=== PATIENT | female | born 1995 ===

== ENCOUNTER 2022-08-23 09:16 | Emergency (ER) | payer OTHER, SELFPAY ==
--- NOTE | ~2022-08-23 | CT_ITS ---
EXAMINATION: CT ABDOMEN AND PELVIS WITH CONTRAST CLINICAL INFORMATION: Abdominal pain. Flank pain. COMPARISON: None TECHNIQUE: Multidetector volumetric images were obtained from the superior aspect of the liver through the pubic symphysis following administration 85 mL of Omnipaque 350 intravenous contrast. Sagittal and coronal reformatted images were obtained on the technologist's workstation. Oral contrast: No This CT examination was performed using dose optimization techniques as appropriate, variously including the following: *Automated exposure control *Adjustment of mA and/or kV according to patient size (this includes techniques or standardized protocols for targeted exams where dose is matched to indication/reason for exam; i.e. extremities or head) *Use of iterative reconstruction technique DLP: 909 mGy-cm FINDINGS: LUNG BASES: The visualized lung bases are unremarkable. LIVER, GALLBLADDER, AND BILIARY TREE: The liver is normal in size, shape, and attenuation. No focal hepatic lesion or biliary ductal dilatation is present. The gallbladder is unremarkable with no evidence of radiopaque gallstones, gallbladder wall thickening, or obvious pericholecystic inflammatory changes. PANCREAS: Unremarkable. SPLEEN: Unremarkable. ADRENAL GLANDS: Normal appearance of the left adrenal gland. There is a 0.9 cm right adrenal gland nodule which is indeterminate by Hounsfield unit measurement. KIDNEYS AND URETERS: The kidneys are normal in size, shape, and attenuation. No hydronephrosis, hydroureter, or calculi seen. No perinephric stranding. BLADDER: Unremarkable. GASTROINTESTINAL TRACT: The small and large bowel are unremarkable. The appendix is unremarkable. ABDOMINAL WALL: No significant hernia is appreciated. LYMPH NODES: Normal. VASCULAR: Unremarkable. PELVIC VISCERA: The uterus and adnexa are unremarkable. OSSEOUS STRUCTURES: No acute or suspicious osseous abnormality. Mild degenerative change at L5-S1 with small endplate osteophytes present. CT/CT abdomen pelvis w IV con IMPRESSION: 1. No acute findings in the abdomen or pelvis. No hydronephrosis or nephrolithiasis. 2. Indeterminate 0.9 cm right adrenal gland nodule. This can be further evaluated with nonemergent adrenal protocol CT. Fleischner guidelines were followed.
[2022-08-23 09:24] VITALS: BP 129/79; PULSE 78; RESP 16; TEMP 36.1; O2SAT 100; BMI 35.7
--- NOTE | 2022-08-23 09:35 | MHC.EDTECH ---
Labs and urine collected and sent
[2022-08-23 09:42] LABS: MANUAL DIFF FLAG NO
[2022-08-23 09:45] LABS: Appearance Urine Clear; Basophils Percent Auto 0.2 % (0-2); Color Urine Yellow; Eosinophils Absolute Auto 0.1 X10*3/uL (0.0-0.4); Eosinophils Percent Auto 0.7 % (0-4); Glucose Urine UA Negative (Negative); Hematocrit 42.5 % (37.0-47.0); Hemoglobin 13.6 g/dl (12.0-16.0); Imm Gran Abs Auto 0.02 X10*3/uL (0.00-0.03); Imm Gran Pct Auto 0.2 % (0.0-0.4); Leukocyte Esterase Urine Negative (Negative); Lymphocytes Absolute Auto 2.2 X10*3/uL (1.2-4.9); Lymphocytes Percent Auto 25.9 % (20-40); Mean Corpuscular Hemoglobin 27.9 pg (27.0-33.0); Mean Corpuscular Volume 87.1 fL (80.0-98.0); Mean Platelet Volume 11.3 fL (9.4-12.3); Monocytes Absolute Auto 0.5 X10*3/uL (0.1-1.2); Monocytes Percent Auto 6.1 % (2-11); Neutrophils Absolute Auto 5.6 x10*3/uL (2.0-8.3); Neutrophils Percent Auto 66.9 % (45-73); Nitrite Urine Negative (Negative); PH 5.5 (5.0-9.0); Platelet Count 292 X10*3/uL (160-400); Red Blood Count 4.88 X10*6/uL (4.20-5.50); Red Cell Distribution Width 14.5 % (11.0-16.0); Urine Blood Negative (Negative); Urine Ketones Negative (Negative); Urine Protein Negative (Neg-Trace); White Blood Count 8.4 X10*3/uL (4.8-10.8)
[2022-08-23 10:20] LABS: Anion Gap 18 (12-20); Blood Urea Nitrogen 14 mg/dL (9-16); Calcium 9.3 mg/dL (8.4-10.2); Carbon Dioxide 22 mmol/L (22-29); Chloride 105 mmol/L (96-108); Creatinine Clr Calc Pharmacy 114.8; Estimated Glomerular Filt Rate > 60; Glucose Random 109 mg/dL (60-115); Potassium 4.7 mmol/L (3.3-5.1); Sodium 140 mmol/L (135-145)
--- NOTE | 2022-08-23 11:09 | ED_ITS ---
HPI - General Adult General Chief complaint: Abdominal Pain Stated complaint: pain from back to abd Time Seen by Provider: 08/23/22 11:08 Source: patient Mode of arrival: ambulatory Limitations: no limitations History of Present Illness HPI narrative: Tiki is a 27 year old female who presents to the ED with two weeks of progressively worsening right sided flank pain and RUQ pain. She reports pain initially started solely as flank pain while sitting at work but has since progressed to radiation in RUQ. She denies any trauma to the area. She associates a constant dull aching with intermittent stabbing/shooting pain in RUQ. She endorses nausea but denies vomiting, fatigue, fever, or skin color changes. Her pain is reproducible with palpation and worse with inspiration. She reports exacerbation with etoh use, and minimal relief with acetaminophen and ibuprofen. Onset (ago): week(s) (2) Location: chest, back and abdomen Radiation: back and abdomen Severity: mild Severity scale (1-10): 3 Quality: stabbing and dull Pain Consistency: constant (dull aching) and intermittent (sharp intermittent) Relieving factors: none Exacerbating factors: movement and other (palpation, inspiration) Associated symptoms: nausea/vomiting (nausea) Treatments prior to arrival: NSAID (ibuprofen) and other (tylenol) Related Data Previous Rx's Medication Instructions Recorded naproxen 500 mg tablet 500 mg PO BID 7 days #14 tabs 08/23/22 Allergies Allergy/AdvReac Type Severity Reaction Status Date / Time No Known Allergies Allergy Verified 08/23/22 09:24 Review of Systems Constitutional: Constitutional: Reports no additional constitutional complaints, Denies chills, Denies fever(s) and Denies night sweats Eyes: Eyes: Reports no additional eye complaints, Denies blurry vision, Denies change in vision, Denies diplopia, Denies eye discharge, Denies loss of vision and Denies eye pain ENT: Denies dizziness Cardiovascular: Cardiovascular: Reports no additional cardiovascular complaints, Reports chest pain (right sided chest wall), Denies lightheadedness, Denies Loss of Consciousness and Denies dyspnea Respiratory: Respiratory: Reports no additional respiratory complaints and Denies dyspnea Gastrointestinal: Gastrointestinal: Reports no additional gastrointestinal complaints, Reports abdominal pain, Denies melena, Denies hematochezia, Denies change in bowel habits, Denies change in stool character, Denies constipation, Denies diarrhea and Reports nausea Genitourinary: Genitourinary: Denies hematuria, Denies urinary frequency, Denies dysuria, Reports flank pain (right), Denies urinary incontinence, Denies urinary hesitancy and Denies urinary urgency Musculoskeletal: Musculoskeletal: Reports no additional musculoskeletal complaints, Reports back pain (right flank), Denies numbness and Denies tingling Integumentary/Breasts: Skin/Breast: Denies change in pigmentation Neurologic: Denies dizziness, Denies loss of vision, Denies numbness and Denies tingling Psychiatric: Psychiatric: Reports no additional psychiatric complaints Endocrine: Endocrine: Reports no additional endocrine complaints Hematologic/Lymphatic: Hematologic/Lymphatic: Reports no additional hematologic/lymphatic complaints Allergic/Immunologic: Allergic/Immunologic: Reports no additional allergic/immunologic complaints PMFSH Past Medical History Attestation statement: The following information was validated with the patient. Source: old records reviewed and nursing notes reviewed Social History Social History Advance Directives: No Physical Exam ED Vital Signs: Vital Signs - 24 hr 08/23/22 09:24 08/23/22 11:35 08/23/22 14:26 Temperature 97 F 98.2 F 98.3 F Pulse Rate 78 87 55 Respiratory Rate 16 16 16 Blood Pressure 129/79 145/87 H 126/68 Pulse Oximetry 100 98 100 Oxygen Delivery Method Room Air Room Air Room Air BMI result Body Mass Index 35.7 Const General: cooperative, no acute distress, alert and awake Nutritional Appearance: well nourished Orientation/consciousness: patient oriented x3 Limitations: no limitations [facility] Head: Yes normal to inspection and Yes atraumatic Ears: hearing grossly normal bilaterally and external ears normal General nose exam: Normal external nose present, no nasal discharge noted and no epistaxis Face and sinus: Yes normal facial exam, No abrasion and No laceration Mouth: Normal oral and palatal mucosa present, no drooling and no muffled voice Eyes General: appearance normal, both eyes and all related structures Periorbital: periorbital findings normal Eyelids: Yes eyelids normal Conjunctivae: conjunctivae normal Pupils: Equal, round and reactive pupils present EOM: EOMs intact bilaterally Neck Neck: Yes normal visual inspection, Yes full ROM and Yes no lymphadenopathy Chest Other: pain with palpation of the right chest wall Chest palpation & inspection: normal inspection of the chest Resp Effort & Inspection: normal respiratory effort and able to speak in complete sentences Auscultation: clear to auscultation bilaterally Cardio Rate: regular rate Rhythm: regular rhythm GI Inspection: Yes normal to inspection Palpation (GI): Soft to palpation, not firm, Tenderness to palpation present (GI) in the RUQ; Oconnell's sign negative, no guarding and not rigid Auscultation: normal bowel sounds General: Yes CVA tenderness (right side with radiation to RUQ) Back/Spine/Pelvis Back: CVA tenderness (right side with radiation to RUQ) and other Skin General skin exam: no rashes or lesions noted Neuro General: patient oriented x3 and moves all extremities Cranial nerves: Yes Equal, round and reactive pupils present Cognition (Neuro): normal cognition Motor exam (neuro): 5/5 motor strength present throughout Sensory Exam: Normal double simultaneous stimulation for sensation Coordination: [id number] test normal Extrem General: Yes normal to inspection, Yes full ROM and Yes capillary refill normal Psych Appearance: grossly normal Mental Status: mental status grossly normal Affect: normal affect Attitude: cooperative Thought process: Normal thought process present Thought content: Normal thought content present Insight: Good insight present (Psych) Medications Administered Discontinued Medications Generic Name Dose Route Start Last Admin Trade Name Mari PRN Reason Stop Dose Admin Iohexol 100 ml 08/23/22 13:59 08/23/22 13:59 Iohexol 350 Mg/Ml 100 Ml Infus..Btl IV 08/23/22 14:00 85 ml ONCE ONE Administration Ketorolac Tromethamine 15 mg 08/23/22 14:43 08/23/22 15:01 Ketorolac Tromethamine 15 Mg/Ml Vial IVPUSH 08/23/22 14:44 15 mg ONCE ONE Administration Morphine Sulfate 4 mg 08/23/22 11:22 08/23/22 11:28 Morphine Sulfate 4 Mg/Ml Cartridge IVPUSH 08/23/22 11:23 4 mg ONCE ONE Administration Protocol Ondansetron HCl 4 mg 08/23/22 11:22 08/23/22 11:28 Ondansetron Hcl 4 Mg/2 Ml Vial IVPUSH 08/23/22 11:23 4 mg ONCE ONE Administration Pantoprazole Sodium 40 mg 08/23/22 11:22 08/23/22 11:28 Pantoprazole Sodium 40 Mg/10 Ml Vial IVPUSH 08/23/22 11:23 40 mg ONCE ONE Administration Medical Decision Making Medical Decision Making [facility] Narrative: Patient is a 27 year old assigned female at with no reported medical history presenting to the emergency department today with right upper quadrant abdominal pain, right sided flank pain, and right sided chest wall pain. Patient's physical exam showed pain with palpation of the right upper abdominal quadrant, right chest wall, and right CVA. Patient's blood work was unremarkable. Patient's urine showed no acute process. Patient's abdomen/pelvis CT showed no acute process. I explained my physical exam findings as well as all test results to the patient. I answered all questions asked by the patient. Patient received IV pain medications and anti-emetics which she stated helped her symptoms significantly. I stressed the importance of the patient taking her medication as prescribed. I stressed the importance of the patient following up with her primary care provider. I stressed the importance of the patient returning to the emergency department immediately if her symptoms were to worsen or if she were to develop any dizziness, shortness of breath, difficulty breathing, chest pain, blurry vision, loss of vision, nausea, vomiting, a bdominal pain, fever, chills, back pain, or any other complaints. Patient verbalized agreement and understanding with this treatment plan and discharge. Differential Diagnosis Differential Diagnoses: The differential diagnosis associated with the presentation includes chest wall pain, abdominal pain Lab Data [facility] Lab Attestation statement: I reviewed the patient's lab results. 08/23/22 09:31 08/23/22 09:31 Labs: Lab Results 08/23/22 08/23/22 08/23/22 Range/Units 09:31 09:31 09:31 WBC 8.4 (4.8-10.8) X10*3/uL RBC 4.88 (4.20-5.50) X10*6/uL Hgb 13.6 (12.0-16.0) g/dl Hct 42.5 (37.0-47.0) % MCV 87.1 (80.0-98.0) fL MCH 27.9 (27.0-33.0) pg MCHC 32.0 (31.0-35.0) g/dl RDW 14.5 (11.0-16.0) % Plt Count 292 (160-400) X10*3/uL MPV 11.3 (9.4-12.3) fL Immature Gran % (Auto) 0.2 (0.0-0.4) % Neut % (Auto) 66.9 (45-73) % Lymph % (Auto) 25.9 (20-40) % [place] % (Auto) 6.1 (2-11) % Eos % (Auto) 0.7 (0-4) % Baso % (Auto) 0.2 (0-2) % Lymph # (Auto) 2.2 (1.2-4.9) X10*3/uL [place] # (Auto) 0.5 (0.1-1.2) X10*3/uL Eos # (Auto) 0.1 (0.0-0.4) X10*3/uL Baso # (Auto) 0.0 (0.0-0.2) X10*3/uL Abs Immat Gran (auto) 0.02 (0.00-0.03) X10*3/uL Absolute Neuts (auto) 5.6 (2.0-8.3) x10*3/uL Absolute Nucleated RBC 0.000 (0.0-0.012) X10*3/uL Nucleated RBC % (auto) 0.0 (0.0-0.2) /100WBC Sodium 140 (135-145) mmol/L Potassium 4.7 (3.3-5.1) mmol/L Chloride 105 (96-108) mmol/L Carbon Dioxide 22 (22-29) mmol/L Anion Gap 18 (12-20) BUN 14 (9-16) mg/dL Creatinine 0.85 (0.5-1.4) mg/dL Estim Creat Clear Calc 114.8 Estimated GFR > 60 Random Glucose 109 (60-115) mg/dL Calcium 9.3 (8.4-10.2) mg/dL Lipase 44 (8-78) U/L Beta HCG, Quant < 2 mIU/mL Urine Color Yellow Urine Appearance Clear Urine pH 5.5 (5.0-9.0) Ur Specific [place] 1.020 (1.005-1.025) Urine Protein Negative (Neg-Trace) mg/dL Urine Glucose (UA) Negative (Negative) mg/dL Urine Ketones Negative (Negative) mg/dL Urine Blood Negative (Negative) Urine Nitrite Negative (Negative) Ur Leukocyte Esterase Negative (Negative) Radiology Impression Radiologist Impression: My interpretation is in agreement with the radiologist's impression of this imaging study. - EXAMINATION: CT ABDOMEN AND PELVIS WITH CONTRAST? CLINICAL INFORMATION: Abdominal pain. Flank pain.? COMPARISON: None? TECHNIQUE: Multidetector volumetric images were obtained from the superior aspect of the liver through the pubic symphysis following administration 85 mL of Omnipaque 350 intravenous contrast. Sagittal and coronal reformatted images were obtained on the technologist's workstation.? Oral contrast: No This CT examination was performed using dose optimization techniques as appropriate, variously including the following: *Automated exposure control *Adjustment of mA and/or kV according to patient size (this includes techniques or standardized protocols for targeted exams where dose is matched to indication/reason for exam; i.e. extremities or head) *Use of iterative reconstruction technique DLP: 909 mGy-cm FINDINGS: LUNG BASES: The visualized lung bases are unremarkable.? LIVER, GALLBLADDER, AND BILIARY TREE: The liver is normal in size, shape, and attenuation. No focal hepatic lesion or biliary ductal dilatation is present. The gallbladder is unremarkable with no evidence of radiopaque gallstones, gallbladder wall thickening, or obvious pericholecystic inflammatory changes.? PANCREAS: Unremarkable.? SPLEEN: Unremarkable.? ADRENAL GLANDS: Normal appearance of the left adrenal gland. There is a 0.9 cm right adrenal gland nodule which is indeterminate by Hounsfield unit measurement.? KIDNEYS AND URETERS: The kidneys are normal in size, shape, and attenuation. No hydronephrosis, hydroureter, or calculi seen. No perinephric stranding. ? BLADDER: Unremarkable.? GASTROINTESTINAL TRACT: The small and large bowel are unremarkable. The appendix is unremarkable.? ABDOMINAL WALL: No significant hernia is appreciated.? LYMPH NODES: Normal. VASCULAR: Unremarkable. PELVIC VISCERA: The uterus and adnexa are unremarkable.? OSSEOUS STRUCTURES: No acute or suspicious osseous abnormality. Mild degenerative change at L5-S1 with small endplate osteophytes present.? CT/CT abdomen pelvis w IV con IMPRESSION: 1.? No acute findings in the abdomen or pelvis. No hydronephrosis or nephrolithiasis. 2.? Indeterminate 0.9 cm right adrenal gland nodule. This can be further evaluated with nonemergent adrenal protocol CT. ? Fleischner guidelines were followed. Dictated By: Rigo Rich MD Signed By: Electronically signed by Rigo Rich MD 08/23/22 1428 Discharge Plan Discharge Clinical Impression: Abdominal pain, Acute costochondritis Patient Disposition: Home, Self-Care Instructions: Costochondritis (ED), Abdominal Pain (ED) Additional Instructions: Follow up with your primary care provider. Return to the emergency department immediately if your symptoms worsen or if you develop any dizziness, shortness of breath, difficulty breathing, chest pain, blurry vision, loss of vision, nausea, vomiting, abdominal pain, fever, chills, back pain, or any other complaints. Prescriptions: New naproxen 500 mg tablet 500 mg PO BID 7 Days Qty: 14 0RF Referrals: [facility] [[facility]] (Call to establish and follow up with a primary care provider. If you already have a primary care provider, please follow up with them. ) [facility] [place] [Provider Group] (Call to establish and follow up with a primary care provider. If you already have a primary care provider, please follow up with them. ) [facility] [Provider Group] (Call to establish and follow up with a primary care provider. If you already have a primary care provider, please follow up with them. ) Stand Alone Forms: Work/School Release Discharge Date/Time: 08/23/22 14:59 Print Language: Kazakh
[2022-08-23] MEDS: Morphine Sulfate 4 MG/ML CARTRIDGE IVPUSH (11:28)
[2022-08-23] MEDS: ondansetron HCL 4 MG/2 ML VIAL IVPUSH (11:28)
[2022-08-23] MEDS: Pantoprazole Sodium 40 MG/10 ML VIAL IVPUSH (11:28)
[2022-08-23 11:35] VITALS: BP 145/87; PULSE 87; RESP 16; TEMP 36.8; O2SAT 98
--- NOTE | 2022-08-23 11:38 | PC.NURSE ---
pt presents with flank pain, Iv in place, pt on monitor and in gown, given IV meds for pain/nasuea.
[2022-08-23 11:46] LABS: Lipase 44 U/L (8-78)
[2022-08-23 11:50] LABS: HCG Quantitative < 2 mIU/mL
[2022-08-23] MEDS: iohexoL 350 MG/ML 100 ML INFUS..BTL IV (13:59)
[2022-08-23 14:26] VITALS: BP 126/68; PULSE 55; RESP 16; TEMP 36.8; O2SAT 100
[2022-08-23] MEDS: Ketorolac Tromethamine 15 MG/ML VIAL IVPUSH (15:01)
== END 2022-08-23 14:59 | disposition home or self-care (01) ==
PROVIDERS: Physician Assistant Medical; Emergency Provider Emergency Medicine
DX: M94.0 Chondrocostal junction syndrome [Tietze] (principal); R10.11 Right upper quadrant pain; R11.2 Nausea with vomiting, unspecified; Z79.899 Other long term (current) drug therapy
CPT/HCPCS: 36415; 74177; 80048; 81003; 83690; 84702; 85025; 96374; 96375; 99284; J1885; J2270; J2405; Q9967

== ENCOUNTER 2023-04-28 11:17 | Emergency (ER) | payer OTHER, SELFPAY ==
[2023-04-28 11:27] VITALS: BP 121/84; PULSE 85; RESP 17; TEMP 36.4; O2SAT 100; BMI 36.0
--- NOTE | 2023-04-28 11:28 | ED_ITS ---
HPI - General Adult General Chief complaint: General Medical Stated complaint: vaginal pain Time Seen by Provider: 04/28/23 12:15 Source: patient Mode of arrival: ambulatory Limitations: no limitations History of Present Illness HPI narrative: 20-year-old female history of herpes UTIs presents to emergency department complaining of pain to her suprapubic area. She states pain has been gradually getting worse that it was initially she had outbreak of herpes but she knows she did not have an outbreak currently. She denies any fevers chills denies falls or injuries. Patient has had bladder infection the past when she was that it was in her herpes outbreak she was concerned and want to come in for further evaluation Related Data Previous Rx's Medication Instructions Recorded naproxen 500 mg tablet 500 mg PO BID 7 days #14 tabs 08/23/22 cephalexin 500 mg capsule 500 mg PO QID #40 caps 04/28/23 phenazopyridine 100 mg tablet 100 mg PO TID PRN pain #30 tabs 04/28/23 (Pyridium) Allergies Allergy/AdvReac Type Severity Reaction Status Date / Time No Known Allergies Allergy Verified 08/23/22 09:24 Review of Systems 2 Review of Systems: Review of systems: General: Patient denies any fever chills recent illness or falls Musculoskeletal: Denies back pain or body aches or other injuries HEENT: denies headache, runny nose, ear pain Respiratory: denies shortness of breath, cough Cardiovascular: no chest pain or palpitations : dysuria, frequency Abdomen: no nausea vomiting does have suprpubic abdominal pain Extremities: no swelling, no pain Skin: no diaphoresis Yes all other systems are reviewed and are negative PMFSH Social History Social History Smoked in Last 30 Days: No Advance Directives: No Patient : No Physical Exam ED Vital Signs: Vital Signs - 24 hr 04/28/23 11:27 Temperature 97.6 F Pulse Rate 85 Respiratory Rate 17 Blood Pressure 121/84 Pulse Oximetry 100 Oxygen Delivery Method Room Air BMI result Body Mass Index 36.0 General: Well-appearing well-nourished in no signs of distress HEENT: Normocephalic atraumatic Neck: No signs of JVD, no masses no tenderness or lymphadenopathy Cardiovascular: Regular rate and rhythm Respiratory: Clear to auscultation bilaterally Abdomen: Soft nontender no masses no CVA tenderness Extremities: Normal pedal pulses no signs of edema Skin: Dry warm no rashes Back: No tenderness full ROM Course Course Course Narrative: RME- 28 year old female presents for evaluation of vaginal pain that started 4 days ago. Also complaining of abdominal pain. Pain is constant. Concerned she may have a UTI. Plan for UA and CTNG, labs. Medical Decision Making Medical Decision Making [facility] Narrative: patient has signs of a bladder infection also the patient Keflex and Pyridium here the patient follow-up with her doctor. Differential Diagnosis Differential Diagnoses: The differential diagnosis associated with the presentation includes UTI herpes outbreak STI Lab Data [facility] Lab Attestation statement: I reviewed the patient's lab results. 04/28/23 11:46 04/28/23 11:46 Labs: Lab Results 04/28/23 Range/Units 11:46 WBC 12.5 H (4.8-10.8) X10*3/uL RBC 5.08 (4.20-5.50) X10*6/uL Hgb 14.2 (12.0-16.0) g/dl Hct 44.2 (37.0-47.0) % MCV 87.0 (80.0-98.0) fL MCH 28.0 (27.0-33.0) pg MCHC 32.1 (31.0-35.0) g/dl RDW 14.8 (11.0-16.0) % Plt Count 323 (160-400) X10*3/uL MPV 10.8 (9.4-12.3) fL Immature Gran % (Auto) 0.2 (0.0-0.4) % Neut % (Auto) 79.4 H (45-73) % Lymph % (Auto) 15.6 L (20-40) % [place] % (Auto) 4.2 (2-11) % Eos % (Auto) 0.4 (0-4) % Baso % (Auto) 0.2 (0-2) % Lymph # (Auto) 2.0 (1.2-4.9) X10*3/uL [place] # (Auto) 0.5 (0.1-1.2) X10*3/uL Eos # (Auto) 0.1 (0.0-0.4) X10*3/uL Baso # (Auto) 0.0 (0.0-0.2) X10*3/uL Abs Immat Gran (auto) 0.03 (0.00-0.03) X10*3/uL Absolute Neuts (auto) 9.9 H (2.0-8.3) x10*3/uL Absolute Nucleated RBC 0.000 (0.0-0.012) X10*3/uL Nucleated RBC % (auto) 0.0 (0.0-0.2) /100WBC Sodium 141 (135-145) mmol/L Potassium 4.2 (3.3-5.1) mmol/L Chloride 106 (96-108) mmol/L Carbon Dioxide 26 (22-29) mmol/L Anion Gap 13 (12-20) BUN 11 (9-16) mg/dL Creatinine 0.75 (0.5-1.4) mg/dL Estim Creat Clear Calc 124.9 Estimated GFR > 60 Random Glucose 105 (60-115) mg/dL Calcium 9.4 (8.4-10.2) mg/dL Total Bilirubin 0.3 (0.0-1.0) mg/dL AST 24 (5-31) U/L ALT 19 (0-31) U/L Alkaline Phosphatase 76 (39-117) U/L Total Protein 8.0 (6.5-8.0) g/dL Albumin 4.7 (3.5-5.0) g/dL Lipase 71 (8-78) U/L Urine Color Yellow Urine Appearance Cloudy Urine pH 5.5 (5.0-9.0) Ur Specific [place] 1.015 (1.005-1.025) Urine Protein 100 (2+) H (Neg-Trace) mg/dL Urine Glucose (UA) Negative (Negative) mg/dL Urine Ketones Negative (Negative) mg/dL Urine Blood Large (3+) H (Negative) Urine Nitrite Negative (Negative) Ur Leukocyte Esterase Moderate (2+) H (Negative) Urine RBC >20 H (0-2) /HPF Urine WBC >50 H (0-5) /HPF Ur Squamous Epith Cells 0-2 (0-2) /HPF Urine Bacteria 4+ (None Seen) Hyaline Casts 0-2 (0-2) /LPF Urine Test NEGATIVE (NEGATIVE) Discharge Plan Discharge Clinical Impression: UTI (urinary tract infection) Patient Disposition: Home, Self-Care Instructions: Urinary Tract Infection in Women (DC) Additional Instructions: Your seen today for bladder infection you can take Tylenol ibuprofen for pain please take the Pyridium for dysuria and Keflex for the bladder infection. Prescriptions: New phenazopyridine [Pyridium] 100 mg tablet 100 mg PO TID PRN (Reason: pain) Qty: 30 0RF cephalexin 500 mg capsule 500 mg PO QID Qty: 40 0RF No Action naproxen 500 mg tablet 500 mg PO BID 7 Days Qty: 14 0RF
[2023-04-28 11:52] LABS: MANUAL DIFF FLAG NO
[2023-04-28 11:54] LABS: Appearance Urine Cloudy; Color Urine Yellow; Glucose Urine UA Negative (Negative); Leukocyte Esterase Urine Moderate (2+) (Negative); Nitrite Urine Negative (Negative); PH 5.5 (5.0-9.0); Specific Gravity - Urine 1.015 (1.005-1.025); UMIC TRIGGER UACC YES; Urine Blood Large (3+) (Negative); Urine Ketones Negative (Negative); Urine Protein 100 (2+) mg/dL (Neg-Trace)
[2023-04-28 11:55] LABS: Basophils Percent Auto 0.2 % (0-2); Eosinophils Absolute Auto 0.1 X10*3/uL (0.0-0.4); Eosinophils Percent Auto 0.4 % (0-4); Hematocrit 44.2 % (37.0-47.0); Hemoglobin 14.2 g/dl (12.0-16.0); Imm Gran Abs Auto 0.03 X10*3/uL (0.00-0.03); Imm Gran Pct Auto 0.2 % (0.0-0.4); Lymphocytes Percent Auto 15.6 % (20-40); Mean Corpuscular HGB Conc 32.1 g/dl (31.0-35.0); Mean Platelet Volume 10.8 fL (9.4-12.3); Monocytes Absolute Auto 0.5 X10*3/uL (0.1-1.2); Monocytes Percent Auto 4.2 % (2-11); Neutrophils Absolute Auto 9.9 x10*3/uL (2.0-8.3); Neutrophils Percent Auto 79.4 % (45-73); Platelet Count 323 X10*3/uL (160-400); Red Blood Count 5.08 X10*6/uL (4.20-5.50); Red Cell Distribution Width 14.8 % (11.0-16.0); White Blood Count 12.5 X10*3/uL (4.8-10.8)
[2023-04-28 11:56] LABS: UPreg QC Valid YES; Urine Pregnancy NEGATIVE (NEGATIVE)
[2023-04-28 12:05] LABS: Bacteria Urine 4+ (None Seen); Hyaline Casts Urine 0-2 /LPF (0-2); RBC Urine >20 /HPF (0-2); Squamous Epithelial Cell Urine 0-2 /HPF (0-2); UACC Culture Trigger YES; WBC Urine >50 /HPF (0-5)
[2023-04-28 12:13] LABS: Alanine Aminotransferase 19 U/L (0-31); Albumin Level 4.7 g/dL (3.5-5.0); Alkaline Phosphatase 76 U/L (39-117); Anion Gap 13 (12-20); Aspartate Amino Transferase 24 U/L (5-31); Bilirubin Total 0.3 mg/dL (0.0-1.0); Blood Urea Nitrogen 11 mg/dL (9-16); Calcium 9.4 mg/dL (8.4-10.2); Carbon Dioxide 26 mmol/L (22-29); Chloride 106 mmol/L (96-108); Creatinine Clr Calc Pharmacy 124.9; Estimated Glomerular Filt Rate > 60; Glucose Random 105 mg/dL (60-115); Lipase 71 U/L (8-78); Potassium 4.2 mmol/L (3.3-5.1); Sodium 141 mmol/L (135-145)
[2023-04-28] MEDS: Ketorolac Tromethamine 30 MG/ML VIAL 15 MG IM (13:20)
[2023-04-28] MEDS: Phenazopyridine HCL 100 MG TABLET PO (13:21)
[2023-04-28] MEDS: cephALEXin 500 MG CAPSULE PO (13:21)
[2023-04-28 13:27] LABS: CT PCR NOT DETECTED (Not Detect.); NG PCR NOT DETECTED (Not Detect.)
== END 2023-04-28 13:28 | disposition home or self-care (01) ==
PROVIDERS: Physician Assistant; Emergency Provider Student in an Organized Health Care Education/Training Program
DX: N39.0 Urinary tract infection, site not specified (principal); R10.2 Pelvic and perineal pain
CPT/HCPCS: 0353U; 36415; 80053; 81001; 81025; 83690; 85025; 87086; 87088; 87186; 96372; 99284; J1885

== ENCOUNTER 2024-02-20 13:22 | Emergency (ER) | payer OTHER, SELFPAY ==
--- NOTE | ~2024-02-20 | CT_ITS ---
EXAMINATION: CT ABDOMEN AND PELVIS WITHOUT CONTRAST CLINICAL INFORMATION: Epigastric pain. Heavy drinking. COMPARISON: CT abdomen pelvis every 2022 TECHNIQUE: Multidetector volumetric imaging was performed from the superior aspect of the liver through the pubic symphysis. Sagittal and coronal reformatted images were obtained on the technologist's workstation. This CT examination was performed using dose optimization techniques as appropriate, variously including the following: *Automated exposure control *Adjustment of mA and/or kV according to patient size (this includes techniques or standardized protocols for targeted exams where dose is matched to indication/reason for exam; i.e. extremities or head) *Use of iterative reconstruction technique DLP: 631 mGy-cm FINDINGS: Visualized lung bases are well aerated. The liver is normal in size but demonstrates diffusely decreased attenuation. The gallbladder is decompressed but unremarkable. The pancreas, spleen and adrenal glands are unremarkable. Symmetrically sized kidneys. No renal calculi or hydronephrosis of either kidney. Debris-filled stomach. Normal caliber loops of small and large bowel. Normal appendix. Normal caliber abdominal aorta. No retroperitoneal lymphadenopathy. The bladder is decompressed. Unremarkable CT appearance of the uterus. No gross free pelvic fluid. No inguinal lymphadenopathy. No acute osseous abnormality. CT/CT abdomen pelvis wo IV con IMPRESSION: 1. No CT evidence for acute abnormality within the abdomen or pelvis. 2. Diffusely decreased liver attenuation suggesting hepatic steatosis. Correlation with liver enzymes recommended. Fleischner guidelines were followed.
--- NOTE | ~2024-02-20 | XR_ITS ---
EXAMINATION: XR CHEST CLINICAL INFORMATION: Coughing up blood COMPARISON: None available. TECHNIQUE: 2 views of the chest were obtained. FINDINGS: No significant abnormality is noted involving the heart, lungs, mediastinum, bony thorax or soft tissues. XR/XR chest 2V IMPRESSION: Unremarkable examination.
[2024-02-20 13:46] VITALS: BP 108/69; PULSE 75; RESP 18; TEMP 37; O2SAT 98; BMI 35.3
--- NOTE | 2024-02-20 13:47 | ED.GENADULT ---
HPI - General Adult General Chief complaint: Abdominal Pain Stated complaint: Coughing up blood Time Seen by Provider: 02/20/24 21:20 Source: patient Mode of arrival: ambulatory Limitations: no limitations History of Present Illness ED Provider: Dr. Chatterjee HPI narrative: Patient is a heavy drinker on the weekends notice three days ago she started vomiting specks of blood and possibly coughing up blood Onset (ago): day(s) Severity: mild Related Data Previous Rx's ?Medication ?Instructions ?Recorded naproxen 500 mg tablet 500 mg PO BID 7 days #14 tabs 08/23/22 cephalexin 500 mg capsule 500 mg PO QID #40 caps 04/28/23 phenazopyridine 100 mg tablet 100 mg PO TID PRN pain #30 tabs 04/28/23 (Pyridium) pantoprazole 40 mg tablet,delayed 40 mg PO DAILY #20 tabs 02/20/24 release (Protonix) Allergies Allergy/AdvReac Type Severity Reaction Status Date / Time No Known Allergies Allergy Verified 02/20/24 13:50 Review of Systems Review of Systems: Yes all other systems are reviewed and are negative Neurologic: Denies Sensory deficit (Neuro) [facility] Social History Social History Advance Directives: No Advance Directives Information Provided: No Physical Exam ED Vital Signs: Vital Signs - 24 hr 02/20/24 13:46 02/20/24 17:40 02/20/24 18:12 Temperature 98.6 F 98.5 F 98.3 F Pulse Rate 75 67 81 Respiratory Rate 18 18 18 Blood Pressure 108/69 105/69 108/63 Pulse Oximetry 98 98 100 Oxygen Delivery Method Room Air Room Air Room Air BMI result Body Mass Index 35.3 Const General: healthy appearing Nutritional Appearance: obese Orientation/consciousness: oriented to person and patient oriented x3 Limitations: no limitations HENMT Head: Yes normal to inspection Ears: external ears normal General nose exam: Normal external nose present Mouth: Normal oral and palatal mucosa present and oropharynx normal Throat: Yes posterior oropharynx normal Eyes General: appearance normal, both eyes and all related structures Neck Neck: Yes normal visual inspection Chest Chest palpation & inspection: normal inspection of the chest Resp Auscultation: clear to auscultation bilaterally Cardio Jugular venous distension: no JVD Rate: regular rate Rhythm: regular rhythm Heart sounds: S1 normal heart sound present and S2 normal heart sound present GI Inspection: Yes normal to inspection Palpation (GI): Soft to palpation, nontender and No hepatosplenomegaly present Auscultation: normal bowel sounds General: Yes no CVA tenderness Back/Spine/Pelvis Back: no CVA tenderness Skin General skin exam: no rashes or lesions noted Neuro General: oriented to person and patient oriented x3 Cranial nerves: Yes CN's II-XII intact bilaterally Motor exam (neuro): 5/5 motor strength present throughout Sensory Exam: No Sensory deficit (Neuro) Extrem General: Yes normal to inspection Psych Appearance: grossly normal Course Course Course Narrative: This is a Rapid Medical Examination (RME) performed by Álvrao Feldman PA-C in triage. Full HPI, ROS, assessment and treatment plan per primary provider in the Main ED. 28 yo female hx of etoh abuse here for eval of nausea, vomiting, epigastric abdominal pain, cough, and chest pain x4 days. Reports noticing specks of blood in both her sputum and vomit. admits to heavy drinking on the weekends, mainly cognac. unable to quantify amount. denies drinking daily. admits to heavy drinking prior to onset of symptoms. reports her PCP at one point mentioned concern for peptic ulcer. Patient was seen at [facility] yesterday however sat in the waiting room for 8 hours and had to leave without completing her visit. + TTP of epigastric region w/o rebound or guarding. no calf tenderness. Plan: labs, ekg, cxr, ct abd pelvis Reevaluation(s) Reevaluation #1: blood work, xray and CT negative except for fatty liver disease will start protonix discussed gastritis and fatty liver disease with patient Time: 21:31 Medical Decision Making Differential Diagnosis Differential Diagnoses: The differential diagnosis associated with the presentation includes (GI bleed, peptic ulcer, gastritis, pneumonia, pneumonitis) Admission/Observation Consideration of admission/observation: Escalation of care including admission/observation considered (upon arrival patient considered for admission) Lab Data 02/20/24 17:22 02/20/24 14:15 Labs: Lab Results 02/20/24 02/20/24 02/20/24 Range/Units 14:09 14:10 14:15 WBC (4.8-10.8) X10*3/uL RBC (4.20-5.50) X10*6/uL Hgb (12.0-16.0) g/dl Hct (37.0-47.0) % MCV (80.0-98.0) fL MCH (27.0-33.0) pg MCHC (31.0-35.0) g/dl RDW (11.0-16.0) % Plt Count (160-400) X10*3/uL MPV (9.4-12.3) fL Immature Gran % (Auto) (0.0-0.4) % Neut % (Auto) (45-73) % Lymph % (Auto) (20-40) % [place] % (Auto) (2-11) % Eos % (Auto) (0-4) % Baso % (Auto) (0-2) % Lymph # (Auto) (1.2-4.9) X10*3/uL [place] # (Auto) (0.1-1.2) X10*3/uL Eos # (Auto) (0.0-0.4) X10*3/uL Baso # (Auto) (0.0-0.2) X10*3/uL Abs Immat Gran (auto) (0.00-0.03) X10*3/uL Absolute Neuts (auto) (2.0-8.3) x10*3/uL Absolute Nucleated RBC (0.0-0.012) X10*3/uL Nucleated RBC % (auto) (0.0-0.2) /100WBC Smear Tech's Comments PT 11.0 L (11.1-13.3) SEC INR 0.9 (0.9-1.1) Sodium 140 (135-145) mmol/L Potassium 4.2 (3.3-5.1) mmol/L Chloride 106 (96-108) mmol/L Carbon Dioxide 27 (22-29) mmol/L Anion Gap 11 L (12-20) BUN 10 (9-16) mg/dL Creatinine 0.81 (0.5-1.4) mg/dL Estim Creat Clear Calc 114.5 Estimated GFR > 60 Random Glucose 97 (60-115) mg/dL Calcium 9.8 (8.4-10.2) mg/dL Magnesium 2.0 (1.6-2.6) mg/dL Total Bilirubin 0.3 (0.0-1.0) mg/dL AST 23 (5-31) U/L ALT 20 (0-31) U/L Alkaline Phosphatase 81 (39-117) U/L Troponin I High Sens < 2.7 (<3.5-17.0) ng/L Total Protein 7.7 (6.5-8.0) g/dL Albumin 4.5 (3.5-5.0) g/dL Lipase 35 (8-78) U/L Urine Color Yellow Urine Appearance Cloudy Urine pH 6.0 (5.0-9.0) Ur Specific [place] >= 1.030 H (1.005-1.025) Urine Protein Trace (Neg-Trace) mg/dL Urine Glucose (UA) Negative (Negative) mg/dL Urine Ketones Trace (Negative) mg/dL Urine Blood Negative (Negative) Urine Nitrite Negative (Negative) Ur Leukocyte Esterase Trace H (Negative) Urine RBC 0-2 (0-2) /HPF Urine WBC 0-5 (0-5) /HPF Ur Squamous Epith Cells 11-20 (0-2) /HPF Urine Bacteria 4+ (None Seen) Hyaline Casts 0-2 (0-2) /LPF Ethyl Alcohol < 10 mg/dL Influenza Type A (PCR) NEGATIVE (Negative) Influenza Type B (PCR) NEGATIVE (Negative) RSV RNA Qual (PCR) NEGATIVE (Negative) SARS-CoV-2 RNA (RT-PCR) NEGATIVE (Negative) 02/20/24 Range/Units 17:22 WBC 9.5 (4.8-10.8) X10*3/uL RBC 4.71 (4.20-5.50) X10*6/uL Hgb 13.4 (12.0-16.0) g/dl Hct 39.8 (37.0-47.0) % MCV 84.5 (80.0-98.0) fL MCH 28.5 (27.0-33.0) pg MCHC 33.7 (31.0-35.0) g/dl RDW 14.2 (11.0-16.0) % Plt Count 222 D (160-400) X10*3/uL MPV 11.7 (9.4-12.3) fL Immature Gran % (Auto) 0.5 H (0.0-0.4) % Neut % (Auto) 65.1 (45-73) % Lymph % (Auto) 26.7 (20-40) % [place] % (Auto) 6.6 (2-11) % Eos % (Auto) 0.9 (0-4) % Baso % (Auto) 0.2 (0-2) % Lymph # (Auto) 2.5 (1.2-4.9) X10*3/uL [place] # (Auto) 0.6 (0.1-1.2) X10*3/uL Eos # (Auto) 0.1 (0.0-0.4) X10*3/uL Baso # (Auto) 0.0 (0.0-0.2) X10*3/uL Abs Immat Gran (auto) 0.05 H (0.00-0.03) X10*3/uL Absolute Neuts (auto) 6.2 (2.0-8.3) x10*3/uL Absolute Nucleated RBC 0.000 (0.0-0.012) X10*3/uL Nucleated RBC % (auto) 0.0 (0.0-0.2) /100WBC Smear Tech's Comments VERIFIED PT (11.1-13.3) SEC INR (0.9-1.1) Sodium (135-145) mmol/L Potassium (3.3-5.1) mmol/L Chloride (96-108) mmol/L Carbon Dioxide (22-29) mmol/L Anion Gap (12-20) BUN (9-16) mg/dL Creatinine (0.5-1.4) mg/dL Estim Creat Clear Calc Estimated GFR Random Glucose (60-115) mg/dL Calcium (8.4-10.2) mg/dL Magnesium (1.6-2.6) mg/dL Total Bilirubin (0.0-1.0) mg/dL AST (5-31) U/L ALT (0-31) U/L Alkaline Phosphatase (39-117) U/L Troponin I High Sens (<3.5-17.0) ng/L Total Protein (6.5-8.0) g/dL Albumin (3.5-5.0) g/dL Lipase (8-78) U/L Urine Color Urine Appearance Urine pH (5.0-9.0) Ur Specific [place] (1.005-1.025) Urine Protein (Neg-Trace) mg/dL Urine Glucose (UA) (Negative) mg/dL Urine Ketones (Negative) mg/dL Urine Blood (Negative) Urine Nitrite (Negative) Ur Leukocyte Esterase (Negative) Urine RBC (0-2) /HPF Urine WBC (0-5) /HPF Ur Squamous Epith Cells (0-2) /HPF Urine Bacteria (None Seen) Hyaline Casts (0-2) /LPF Ethyl Alcohol mg/dL Influenza Type A (PCR) (Negative) Influenza Type B (PCR) (Negative) RSV RNA Qual (PCR) (Negative) SARS-CoV-2 RNA (RT-PCR) (Negative) Independent Interpretation I performed an independent interpretation of an: EKG (sinus rate 88, no st or twave changes) and Plain X-Ray (no infiltrate or pneumonitis) Radiology Impression Discussion of test interpretation with radiology: I have reviewed the radiologist's reading. (CT abd and pelvis reviewed and I agree, fatty liver disease) Prescription Management I considered prescription management with: Antibiotic (no evidence of infection) Chronic Conditions Patient?s care impacted by: Other (alcohol abuse) Discharge Plan Discharge Clinical Impression: Gastritis, Alcoholic liver disease Patient Disposition: Home, Self-Care Instructions: Gastritis (ED), Non-Alcoholic Fatty Liver Disease (ED) Prescriptions: New pantoprazole [Protonix] 40 mg tablet,delayed release (DR/EC) 40 mg PO DAILY Qty: 20 0RF No Action naproxen 500 mg tablet 500 mg PO BID 7 Days Qty: 14 0RF phenazopyridine [Pyridium] 100 mg tablet 100 mg PO TID PRN (Reason: pain) Qty: 30 0RF cephalexin 500 mg capsule 500 mg PO QID Qty: 40 0RF Referrals: Physician,Unknown J [Primary Care Provider] - 1 week Print Language: Frisian
--- NOTE | 2024-02-20 13:48 | ECG_ITS ---
Test Reason : chest pain Blood Pressure : / mmHG Vent. Rate : 073 BPM Atrial Rate : 073 BPM P-R Int : 106 ms QRS Dur : 094 ms QT Int : 364 ms P-R-T Axes : 060 004 -09 degrees QTc Int : 401 ms Sinus rhythm with short TX Minimal voltage criteria for LVH, may be normal variant ( R in aVL ) T wave abnormality, consider anterior ischemia Abnormal ECG No previous ECGs available Referred By: Haydee Feldman Electronically Signed By:GLORIA DIAZ MD
[2024-02-20 14:23] LABS: Appearance Urine Cloudy; Color Urine Yellow; Glucose Urine UA Negative (Negative); Leukocyte Esterase Urine Trace (Negative); Nitrite Urine Negative (Negative); Specific Gravity - Urine >= 1.030 (1.005-1.025); UMIC TRIGGER UACC YES; Urine Blood Negative (Negative); Urine Ketones Trace mg/dL (Negative); Urine Protein Trace mg/dL (Neg-Trace)
[2024-02-20 14:25] LABS: Bacteria Urine 4+ (None Seen); Hyaline Casts Urine 0-2 /LPF (0-2); RBC Urine 0-2 /HPF (0-2); WBC Urine 0-5 /HPF (0-5)
[2024-02-20 14:31] LABS: INTERNATIONAL NORM RATIO 0.9 (0.9-1.1)
[2024-02-20 14:36] LABS: Ethanol < 10 mg/dL
[2024-02-20 14:38] LABS: Alanine Aminotransferase 20 U/L (0-31); Albumin Level 4.5 g/dL (3.5-5.0); Alkaline Phosphatase 81 U/L (39-117); Anion Gap 11 (12-20); Aspartate Amino Transferase 23 U/L (5-31); Bilirubin Total 0.3 mg/dL (0.0-1.0); Blood Urea Nitrogen 10 mg/dL (9-16); Calcium 9.8 mg/dL (8.4-10.2); Carbon Dioxide 27 mmol/L (22-29); Chloride 106 mmol/L (96-108); Creatinine Clr Calc Pharmacy 114.5; Estimated Glomerular Filt Rate > 60; Glucose Random 97 mg/dL (60-115); Lipase 35 U/L (8-78); Potassium 4.2 mmol/L (3.3-5.1); Sodium 140 mmol/L (135-145); Total Protein 7.7 g/dL (6.5-8.0)
[2024-02-20 14:46] LABS: Troponin-I High Sensitivity < 2.7 ng/L (<3.5-17.0)
[2024-02-20 15:00] LABS: Influenza A PCR NEGATIVE (Negative); Influenza B PCR NEGATIVE (Negative); Resp Syncy Virus RNA Qual PCR NEGATIVE (Negative); SARS COV2 PCR INHOUSE NEGATIVE (Negative)
[2024-02-20 17:40] VITALS: BP 105/69; PULSE 67; RESP 18; TEMP 36.9; O2SAT 98
[2024-02-20 17:55] LABS: Basophils Percent Auto 0.2 % (0-2); Eosinophils Absolute Auto 0.1 X10*3/uL (0.0-0.4); Eosinophils Percent Auto 0.9 % (0-4); Hematocrit 39.8 % (37.0-47.0); Hemoglobin 13.4 g/dl (12.0-16.0); Imm Gran Abs Auto 0.05 X10*3/uL (0.00-0.03); Imm Gran Pct Auto 0.5 % (0.0-0.4); Lymphocytes Absolute Auto 2.5 X10*3/uL (1.2-4.9); Lymphocytes Percent Auto 26.7 % (20-40); MANUAL DIFF FLAG SCAN; Mean Corpuscular HGB Conc 33.7 g/dl (31.0-35.0); Mean Corpuscular Hemoglobin 28.5 pg (27.0-33.0); Mean Corpuscular Volume 84.5 fL (80.0-98.0); Mean Platelet Volume 11.7 fL (9.4-12.3); Monocytes Absolute Auto 0.6 X10*3/uL (0.1-1.2); Monocytes Percent Auto 6.6 % (2-11); Neutrophils Absolute Auto 6.2 x10*3/uL (2.0-8.3); Neutrophils Percent Auto 65.1 % (45-73); PLT CLUMP 1; Red Blood Count 4.71 X10*6/uL (4.20-5.50); Red Cell Distribution Width 14.2 % (11.0-16.0); SCAN SMEAR FLAG 1
[2024-02-20 18:12] VITALS: BP 108/63; PULSE 81; RESP 18; TEMP 36.8; O2SAT 100
[2024-02-20 19:31] LABS: Platelet Count 222 X10*3/uL (160-400); SLIDE REVIEW VERIFIED; White Blood Count 9.5 X10*3/uL (4.8-10.8)
[2024-02-20 21:36] VITALS: BP 140/92; PULSE 70; RESP 19; TEMP 36.6; O2SAT 99
[2024-02-20] MEDS: Famotidine 20 MG TABLET PO (21:41)
[2024-02-20 21:43] VITALS: BP 140/92; PULSE 70; RESP 19; TEMP 36.6; O2SAT 99
== END 2024-02-20 21:43 | disposition home or self-care (01) ==
PROVIDERS: Physician Assistant Medical; Emergency Provider Emergency Medicine
DX: K70.9 Alcoholic liver disease, unspecified (principal); K29.70 Gastritis, unspecified, without bleeding; R11.2 Nausea with vomiting, unspecified; R05.9 Cough, unspecified; R07.9 Chest pain, unspecified; R10.13 Epigastric pain; Z03.818 Encounter for observation for suspected exposure to other biological agents ruled out
CPT/HCPCS: 0241U; 36415; 71046; 74176; 80053; 80307; 81001; 83690; 83735; 84484; 85025; 85610; 93005; 99284

== ENCOUNTER → 2024-02-20 13:48 | Outpatient (BNV) | payer OTHER, SELFPAY | PROVIDERS: Emergency Provider Emergency Medicine; Visit Provider Internal Medicine Cardiovascular Disease | DX: R94.31 Abnormal electrocardiogram [ECG] [EKG] (principal) | CPT/HCPCS: 93010 ==